=== PATIENT | male | born 1955 | race Caucasian/White ===

== ENCOUNTER 2023-11-04 10:29 | Inpatient (IN) | payer OTHER, MEDICARE ==
[~2023-11-04] VITALS: Ht 175.3 cm; Wt 118.0 kg
[2023-11-04 10:36] VITALS: O2SAT 99
[2023-11-04 10:51] VITALS: PULSE 124; RESP 11
[2023-11-04 11:09] LABS: BASOPHILS % 0.6 % (0.0-2.0); LYMPHOCYTES % 27.7 % (20.0-50.0); MEAN CORPUSCULAR HEMOGLOBIN 28.3 pg (28.0-32.0); MEAN CORPUSCULAR HGB CONC 32.5 g/dL (31.0-37.0); MEAN PLATELET VOLUME 7.8 fl (7.4-10.4); MONOCYTES % 6.9 % (2.0-8.0); NEUTROPHILS % 63.8 % (40.0-76.0); PLATELET 200 x1000/uL (130-400); RED BLOOD CELL COUNT 5.29 mill/uL (4.7-6.1); RED CELL DISTRIBUTION WIDTH 13.6 % (11.6-14.6); WHITE BLOOD COUNT 6.8 x1000/uL (4.5-11.0)
[2023-11-04 11:11] LABS: CLARITY URINE CLEAR (CLEAR); COLOR URINE YELLOW (YELLOW); GLUCOSE URINE 3+ (NEGATIVE); KETONES URINE NEGATIVE (NEGATIVE); LEUKOCYTE ESTERASE URINE NEGATIVE (NEGATIVE); NITRITE URINE NEGATIVE (NEGATIVE); OCCULT BLOOD URINE TRACE (NEGATIVE); PROTEIN URINE 1+ (NEGATIVE); SPECIFIC GRAVITY URINE 1.022 (1.005-1.030); UROBILINOGEN URINE 0.2 E.U./dL (0.2-1.0)
[2023-11-04] MEDS: HYDRALAZINE 20MG/ML VIAL IV STA (11:16)
[2023-11-04 11:18] LABS: CHLORIDE 102 mEq/L (98-107); POTASSIUM 4.1 mEq/L (3.5-5.1); SODIUM 137 mEq/L (136-145)
[2023-11-04 11:19] LABS: CALCIUM 9.9 mg/dL (8.7-10.4); CARBON DIOXIDE 29 mEq/L (21-32)
[2023-11-04 11:22] LABS: INR 0.9; PROTHROMBIN TIME 10.3 sec (9.6-11.0)
[2023-11-04 11:24] LABS: CREATININE 1.1 mg/dL (0.6-1.3); UREA NITROGEN BLOOD 16 mg/dL (9-23)
[2023-11-04 11:27] LABS: TROPONIN I HIGH SENSITIVITY 26 ng/L (3.0-53)
[2023-11-04 11:29] LABS: RBC URINE 0-2 /hpf (0-2); SQUAMOUS EPITHELIAL CELL URINE RARE /lpf (RARE/1+)
[2023-11-04 11:30] LABS: BACTERIA URINE TRACE
[2023-11-04 11:38] LABS: GLUCOSE 416 mg/dL (70-105)
[2023-11-04] MEDS: INSULIN REGULAR (HUMULIN R) 1000UNITS/10ML VIAL SUBCUT STA (12:29)
[2023-11-04 12:35] VITALS: BP 226/134
[2023-11-04] MEDS: LABETALOL 5MG/ML 4ML INJ IV ONE (12:35)
[2023-11-04] MEDS ORDERED: CLONIDINE 0.2MG TABLET PO ONE (13:00)
[2023-11-04] MEDS: CLONIDINE 0.1MG TABLET PO NR (13:15)
[2023-11-04 13:31] LABS: TROPONIN I HIGH SENSITIVITY 30 ng/L (3.0-53)
== END 2023-11-04 19:15 | disposition left against medical advice (07) | DRG 305 ==
LOC: ER 10:29 → 5WST 12:53 → EDBEDREQ 13:02 → EDBEDREQTM 13:02
PROVIDERS: ADMIT Internal Medicine; ATTEND Internal Medicine
DX: I16.0 Hypertensive urgency (principal); I10 Essential (primary) hypertension; E86.0 Dehydration; Z53.21 Procedure and treatment not carried out due to patient leaving prior to being seen by health care provider; E11.65 Type 2 diabetes mellitus with hyperglycemia
CPT/HCPCS: 36415; 80048; 81003; 83880; 84484; 85025; 93005; 99291; J0360; J1815; J3490